=== PATIENT | male | born 1975 | race American Indian/Alaskan Native ===

== ENCOUNTER 2021-03-18 13:23 | Inpatient (IN) | payer BC ==
[2021-03-18] MEDS ORDERED: KETOROLAC 30 MG/1 ML INJ IV ONE (14:06)
[2021-03-18] MEDS ORDERED: SODIUM CHLORIDE 0.9% 1000 ML 1,000 ML IV ONE (14:06)
--- NOTE | 2021-03-18 14:11 | Emergency Department Report ---
<FREYA VELEZ - Last Filed: 03/18/21 20:40> ED Abdominal Pain HPI - General Chief Complaint: Abdominal Pain Stated Complaint: BLOOD IN URINE/HEADACHES Time Seen by Provider: 03/18/21 13:59 - Related Data Home Medications Medication Instructions Recorded Confirmed Last Taken No Known Home Medications [No 03/19/21 03/19/21 Unknown Reported Home Medications] Allergies Allergy/AdvReac Type Severity Reaction Status Date / Time No Known Allergies Allergy Verified 03/18/21 13:47 ED Past Medical Hx - Medications Home Medications: Home Medications Medication Instructions Recorded Confirmed Last Taken Type No Known Home Medications [No 03/19/21 03/19/21 Unknown History Reported Home Medications] ED Course - Reevaluation(s) Reevaluation #1: 03/18/21 17:12 received patient is a signout from the previous ER physician. The patient is a 45-year-old gentleman, who identifies as heterosexual and is only intermittent with female partners, with intermittent barrier protection, who is not vaccinated against COVID-19, who presents to the ER with left-sided flank pain, fever, chills, nausea, vomiting, urinary hesitancy, and hematuria. He is found to have a leukocytosis of 20,000, 2% bandemia, and fever. Urinalysis is suggestive of infection. CT scan abdomen pelvis without contrast suggest pyelonephritis, less likely renal vein thrombosis. Given leukocytosis, fever, bandemia, overall clinical picture, especially as patient endorses shaking, chills, rigors, have recommended admission to the medical service for fluids, pain medication, nausea medication and antibiotics. I discussed this plan of care with the patient. He is agreeable to this plan of care. We will obtain CT scan of the abdomen pelvis with IV contrast to assess for renal vein thrombosis. The patient will be admitted to the medical service under the care of Dr. Abdullahi Wyatt Medical decision makin-year-old gentleman with clinical and radiographic evidence of invasive urinary tract infection, and historical evidence of joshua teremia, requires admission to the medical service for IV antibiotics, fluids, monitoring, supportive care. 03/18/21 20:40 CT scan abdomen pelvis with contrast demonstrates pyelonephritis without renal vein thrombosis. Lactic acid acceptable. ED Medical Decision Making - Lab Data Result diagrams: 03/18/21 15:11 03/18/21 15:11 Vital Signs 03/18/21 03/18/21 03/18/21 13:47 14:29 14:44 Temperature 100.6 F H Pulse Rate 85 Respiratory 16 16 Rate Blood Pressure 165/84 [Left] O2 Sat by Pulse 97 98 Oximetry 03/18/21 16:32 Temperature 98.7 F Pulse Rate 84 Respiratory 18 Rate Blood Pressure 132/87 [Left] O2 Sat by Pulse 98 Oximetry Lab Results 03/18/21 03/18/21 03/18/21 Range/Units 15:11 15:11 15:11 WBC 20.8 H (4.5-11.0) K/mm3 RBC 4.31 (3.65-5.03) M/mm3 Hgb 13.3 (11.8-15.2) gm/dl Hct 39.4 (35.5-45.6) % MCV 91 (84-94) fl MCH 31 (28-32) pg MCHC 34 (32-34) % RDW 13.8 (13.2-15.2) % Plt Count 160 (140-440) K/mm3 Amelia % (Auto) Wheel Alignment Technician Add Manual Diff Complete Total Counted 100 Seg Neuts % (Manual) 78.0 H (40.0-70.0) % Band Neutrophils % 2.0 % Lymphocytes % (Manual) 10.0 L (13.4-35.0) % Monocytes % (Manual) 10.0 H (0.0-7.3) % Nucleated RBC % Not Reportable Seg Neutrophils # Man 16.2 H (1.8-7.7) K/mm3 Band Neutrophils # 0.4 K/mm3 Lymphocytes # (Manual) 2.1 (1.2-5.4) K/mm3 Abs React Lymphs (Man) 0.0 K/mm3 Monocytes # (Manual) 2.1 H (0.0-0.8) K/mm3 Eosinophils # (Manual) 0.0 (0.0-0.4) K/mm3 Basophils # (Manual) 0.0 (0.0-0.1) K/mm3 Metamyelocytes # 0.0 K/mm3 Myelocytes # 0.0 K/mm3 Promyelocytes # 0.0 K/mm3 Blast Cells # 0.0 K/mm3 WBC Morphology Not Reportable TNR Hypersegmented Neuts Not Reportable Hyposegmented Neuts Not Reportable Hypogranular Neuts Not Reportable Smudge Cells Not Reportable Toxic Granulation Not Reportable Toxic Vacuolation Not Reportable Dohle Bodies Not Reportable Pelger-Huet Anomaly Not Reportable Nirali Rods Not Reportable Platelet Estimate Not Reportable Clumped Platelets Not Reportable Plt Clumps, EDTA Not Reportable Large Platelets Not Reportable Giant Platelets Not Reportable Platelet Satelliting Not Reportable Plt Morphology Comment Not Reportable RBC Morphology Normal Dimorphic RBCs Not Reportable Polychromasia Not Reportable Hypochromasia Not Reportable Poikilocytosis Not Reportable Anisocytosis Not Reportable Microcytosis Not Reportable Macrocytosis Not Reportable Spherocytes Not Reportable Pappenheimer Bodies Not Reportable Sickle Cells Not Reportable Target Cells Not Reportable Tear Drop Cells Not Reportable Ovalocytes Not Reportable Helmet Cells Not Reportable Frankel-Rifton Bodies Not Reportable Cecil Rings Not Reportable [place]onsalo Cells Not Reportable Bite Cells Not Reportable Crenated Cell Not Reportable Elliptocytes Not Reportable Acanthocytes (Spur) Not Reportable Rouleaux Not Reportable Hemoglobin C Crystals Not Reportable Schistocytes Not Reportable Malaria parasites Not Reportable Gamaliel Bodies Not Reportable Hem Pathologist Commnt No Sodium 137 (137-145) mmol/L Potassium 3.6 (3.6-5.0) mmol/L Chloride 101.5 (98-107) mmol/L Carbon Dioxide 22 (22-30) mmol/L Anion Gap 17 mmol/L BUN 15 (9-20) mg/dL Creatinine 1.3 (0.8-1.3) mg/dL Estimated GFR > 60 ml/min BUN/Creatinine Ratio 12 % Glucose 100 (75-100) mg/dL Calcium 8.5 (8.4-10.2) mg/dL Total Bilirubin 1.10 (0.1-1.2) mg/dL Direct Bilirubin 0.5 H (0-0.2) mg/dL Indirect Bilirubin 0.6 mg/dL AST 15 (5-40) units/L ALT 16 (7-56) units/L Alkaline Phosphatase 62 (35-129) units/L Total Protein 7.1 (6.3-8.2) g/dL Albumin 3.2 L (3.9-5) g/dL Albumin/Globulin Ratio 0.8 % Urine Color (Yellow) Urine Turbidity (Clear) Urine pH (5.0-7.0) Ur Specific [place] (1.003-1.030) Urine Protein (Negative) mg/dL Urine Glucose (UA) (Negative) mg/dL Urine Ketones (Negative) mg/dL Urine Blood (Negative) Urine Nitrite (Negative) Urine Bilirubin (Negative) Urine Urobilinogen (<2.0) mg/dL Ur Leukocyte Esterase (Negative) Urine WBC (Auto) (0.0-6.0) /HPF Urine RBC (Auto) (0.0-6.0) /HPF U Epithel Cells (Auto) (0-13.0) /HPF Urine Mucus /HPF 03/18/21 Range/Units Unknown WBC (4.5-11.0) K/mm3 RBC (3.65-5.03) M/mm3 Hgb (11.8-15.2) gm/dl Hct (35.5-45.6) % MCV (84-94) fl MCH (28-32) pg MCHC (32-34) % RDW (13.2-15.2) % Plt Count (140-440) K/mm3 Amelia % (Auto) Add Manual Diff Total Counted Seg Neuts % (Manual) (40.0-70.0) % Band Neutrophils % % Lymphocytes % (Manual) (13.4-35.0) % Monocytes % (Manual) (0.0-7.3) % Nucleated RBC % Seg Neutrophils # Man (1.8-7.7) K/mm3 Band Neutrophils # K/mm3 Lymphocytes # (Manual) (1.2-5.4) K/mm3 Abs React Lymphs (Man) K/mm3 Monocytes # (Manual) (0.0-0.8) K/mm3 Eosinophils # (Manual) (0.0-0.4) K/mm3 Basophils # (Manual) (0.0-0.1) K/mm3 Metamyelocytes # K/mm3 Myelocytes # K/mm3 Promyelocytes # K/mm3 Blast Cells # K/mm3 WBC Morphology Hypersegmented Neuts Hyposegmented Neuts Hypogranular Neuts Smudge Cells Toxic Granulation Toxic Vacuolation Dohle Bodies Pelger-Huet Anomaly Nirali Rods Platelet Estimate Clumped Platelets Plt Clumps, EDTA Large Platelets Giant Platelets Platelet Satelliting Plt Morphology Comment RBC Morphology Dimorphic RBCs Polychromasia Hypochromasia Poikilocytosis Anisocytosis Microcytosis Macrocytosis Spherocytes Pappenheimer Bodies Sickle Cells Target Cells Tear Drop Cells Ovalocytes Helmet Cells Frankel-Rifton Bodies Cecil Rings Brohard Cells Bite Cells Crenated Cell Elliptocytes Acanthocytes (Spur) Rouleaux Hemoglobin C Crystals Schistocytes Malaria parasites Gamaliel Bodies Hem Pathologist Commnt Sodium (137-145) mmol/L Potassium (3.6-5.0) mmol/L Chloride (98-107) mmol/L Carbon Dioxide (22-30) mmol/L Anion Gap mmol/L BUN (9-20) mg/dL Creatinine (0.8-1.3) mg/dL Estimated GFR ml/min BUN/Creatinine Ratio % Glucose (75-100) mg/dL Calcium (8.4-10.2) mg/dL Total Bilirubin (0.1-1.2) mg/dL Direct Bilirubin (0-0.2) mg/dL Indirect Bilirubin mg/dL AST (5-40) units/L ALT (7-56) units/L Alkaline Phosphatase (35-129) units/L Total Protein (6.3-8.2) g/dL Albumin (3.9-5) g/dL Albumin/Globulin Ratio % Urine Color Carey (Yellow) Urine Turbidity Cloudy (Clear) Urine pH 6.0 (5.0-7.0) Ur Specific [place] 1.018 (1.003-1.030) Urine Protein 100 mg/dl (Negative) mg/dL Urine Glucose (UA) Neg (Negative) mg/dL Urine Ketones 20 (Negative) mg/dL Urine Blood Lg (Negative) Urine Nitrite Neg (Negative) Urine Bilirubin Neg (Negative) Urine Urobilinogen 4.0 (<2.0) mg/dL Ur Leukocyte Esterase Lg (Negative) Urine WBC (Auto) > 182.0 H (0.0-6.0) /HPF Urine RBC (Auto) 50.0 (0.0-6.0) /HPF U Epithel Cells (Auto) 1.0 (0-13.0) /HPF Urine Mucus Few /HPF - Radiology Data Radiology results: pending, report reviewed, image reviewed CT abdomen pelvis wo con INDICATION / CLINICAL INFORMATION: Bi-Lateral flank pain with vomiting and Hematuria x 4 days.. TECHNIQUE: Axial CT imaging of abdomen and pelvis was obtained without contrast. Coronal and sagittal reformatted imaging obtained and reviewed. All CT scans at this location are performed using CT dose reduction for ALARA by means of automated exposure control. COMPARISON: None available. FINDINGS: CT abdomen without contrast demonstrates grossly normal appearance of the liver, spleen, pancreas, right kidney, and adrenal glands. Calcified gallstone is present within the gallbladder. The gallbladder is not abnormally distended or inflamed in appearance. The left kidney is abnormal. There is prominent inflammatory change in the left perinephric space. The left kidney appears mildly enlarged compared to the right kidney. There is no urinary tract calculus or hydronephrosis identified, however. Findings could be due to extensive pyelonephritis. Without IV contrast, renal vein thrombosis cannot be excluded. CT pelvis without contrast is grossly unremarkable. No pelvic mass, free fluid, or focal inflammatory changes noted. GI tract is unremarkable. A normal appendix is present within the right lower quadrant. Visualized lung bases are clear. No acute osseous abnormality noted. IMPRESSION: 1. Abnormal appearance of the left kidney. The left kidney demonstrates prominent perinephric inflammatory change but without hydronephrosis or visible calculi. The appearance could be secondary to extensive pyelonephritis or other less likely possibilities such as renal vein thrombosis. Please correlate clinically. The right kidney has a normal appear ance. 2. Cholelithiasis without CT evidence for acute cholecystitis. Signer Name: Amanda Lee MD Signed: 03/18/2021 3:16 PM Workstation Name: [id number] CT abdomen pelvis w con INDICATION / CLINICAL INFORMATION: left flank pain, 100ml of omnipaque 300 given. TECHNIQUE: Axial CT imaging of abdomen and pelvis was obtained with IV contrast. Coronal and sagittal reformatted imaging obtained and reviewed. All CT scans at this location are performed using CT dose reduction for ALARA by means of automated exposure control. COMPARISON: CT scan earlier today without contrast. FINDINGS: CT abdomen with IV contrast demonstrates grossly normal appearance of the liver, spleen, pancreas, right kidney, and adrenal glands. Gallbladder contains a calcified gallstone but is otherwise unremarkable. No biliary dilatation. As noted on the prior noncontrasted exam from earlier today, there is moderate inflammatory change involving the left kidney/perinephric space diffusely. No discrete renal mass is noted. I do not see evidence of pyelonephritis. The renal parenchyma is enhancing normally. The left renal vein is well opacified with contrast and there is no suggestion of venous thrombus. The left main renal artery is opacified with contrast is well. No hydronephrosis or urinary tract calculi are noted. CT pelvis with contrast does not demonstrate mass, free fluid, or focal inflammatory change. GI tract is unremarkable. Normal appendix is visualized in the right lower quadrant. Visualized lung bases are clear. No acute osseous abnormality noted. IMPRESSION: 1. Mild to moderate inflammatory change persists in the left perinephric space. The left renal parenchyma is enhancing fairly normally without discrete areas of pyelonephritis. The left renal vein is well opacified with contrast and there is no suggestion of renal vein thrombosis. 2. Cholelithiasis without CT evidence of cholecystitis. Signer Name: Amanda Lee MD Signed: 03/18/2021 5:37 PM Workstation Name: [id number] ED Disposition Clinical Impression: Pyelonephritis Disposition: ADMITTED INPATIENT Is pt being admited?: Yes Does the pt Need Aspirin: No Condition: Good <EMMANUEL RADER. - Last Filed: 03/19/21 15:37> ED Abdominal Pain HPI - General Source: patient Mode of arrival: Ambulatory Limitations: No Limitations - History of Present Illness Initial Comments: 45-year-old male presents to ED with complaint of vomiting and flank pain. Patient states his "kidneys are hurting." He is reporting bilateral flank pain last 4 days. He reports associated hematuria, fever, vomiting. Patient reports passage of a kidney stone over 10 years ago. Patient is also reporting some urinary frequency. Patient denies any abdominal pain. Complaint: flank pain -: days(s) (4) Location: bilateral flank Radiation: none Severity: moderate Quality: aching Consistency: intermittent Improves With: nothing Worsens With: nothing Associated Symptoms: nausea, vomiting, fever, hematuria. denies: diarrhea, dysuria ED Review of Systems ROS: Stated complaint: BLOOD IN URINE/HEADACHES Other details as noted in HPI Comment: All other systems reviewed and negative Constitutional: fever Gastrointestinal: nausea, vomiting. denies: abdominal pain, diarrhea Musculoskeletal: back pain ED Past Medical Hx - Past Medical History Previous Medical History?: No - Surgical History Past Surgical History?: No ED Physical Exam - General Limitations: No Limitations General appearance: alert, in no apparent distress - Head Head exam: Present: atraumatic, normocephalic - Eye Eye exam: Present: normal appearance, EOMI - ENT ENT exam: Present: mucous membranes moist - Neck Neck exam: Present: normal inspection - Respiratory Respiratory exam: Present: normal lung sounds bilaterally. Absent: respiratory distress - Cardiovascular Cardiovascular Exam: Present: regular rate, normal rhythm - GI/Abdominal GI/Abdominal exam: Present: soft. Absent: distended, tenderness - Extremities Exam Extremities exam: Present: normal inspection - Back Exam Back exam: Present: CVA tenderness (R), CVA tenderness (L) - Neurological Exam Neurological exam: Present: alert, oriented X3 - Psychiatric Psychiatric exam: Present: normal affect, normal mood - Skin Skin exam: Present: warm, dry, intact, normal color ED Course Vital Signs 03/18/21 03/18/21 03/18/21 13:47 14:29 14:44 Temperature 100.6 F H Pulse Rate 85 Respiratory 16 16 Rate Blood Pressure Blood Pressure 165/84 [Left] O2 Sat by Pulse 97 98 Oximetry 03/18/21 03/18/21 03/18/21 16:32 18:53 19:00 Temperature 98.7 F Pulse Rate 84 75 Respiratory 18 18 22 Rate Blood Pressure 154/90 Blood Pressure 132/87 [Left] O2 Sat by Pulse 98 96 Oximetry 03/18/21 03/18/21 03/18/21 19:30 20:00 20:30 Temperature Pulse Rate 80 87 80 Respiratory 27 H 18 16 Rate Blood Pressure 140/93 135/90 142/86 Blood Pressure [Left] O2 Sat by Pulse 97 98 96 Oximetry 03/18/21 03/18/21 03/18/21 21:00 22:00 23:00 Temperature Pulse Rate 73 75 62 Respiratory 25 H 15 26 H Rate Blood Pressure 130/83 117/76 107/71 Blood Pressure [Left] O2 Sat by Pulse 98 97 98 Oximetry 03/18/21 03/19/21 03/19/21 23:32 00:00 00:30 Temperature Pulse Rate 67 65 61 Respiratory 20 29 H 22 Rate Blood Pressure 121/75 130/72 130/62 Blood Pressure [Left] O2 Sat by Pulse 97 98 98 Oximetry 03/19/21 03/19/21 03/19/21 00:40 00:50 01:00 Temperature Pulse Rate 73 69 70 Respiratory 22 20 16 Rate Blood Pressure 130/72 139/98 139/98 Blood Pressure [Left] O2 Sat by Pulse 97 97 95 Oximetry 03/19/21 01:10 Temperature Pulse Rate 79 Respiratory 22 Rate Blood Pressure 139/98 Blood Pressure [Left] O2 Sat by Pulse 95 Oximetry ED Medical Decision Making - Lab Data Result diagrams: 03/19/21 05:07 03/19/21 05:07 - Medical Decision Making 45-year-old male presents to ED with complaint of bilateral flank pain. Patient has low-grade fever with evidence of UTI on UA. Remainder of vitals are stable. Patient has mild CVA tenderness bilaterally. UA shows presence of large blood and 50 RBCs in addition to >182 WBCs. Currently waiting on lab res ults and CT abdomen/pelvis to rule out infected renal stone. Patient has been signed out to Dr. Velez to follow-up on labs and CT results. - Differential Diagnosis Pyelonephritis, infected kidney stone Critical care attestation.: If time is entered above; I have spent that time in minutes in the direct care of this critically ill patient, excluding procedure time.
[2021-03-18 14:36] LABS: Bilirubin,Urine NEG (Negative); Blood,Urine LG (Negative); Color,Urine Amber (Yellow); Mucus,Urine FEW /HPF
[2021-03-18 14:44] LABS: WBC,Urine > 182.0 /HPF (0.0-6.0)
[2021-03-18] MEDS ORDERED: ONDANSETRON 4 MG/2 ML INJ IV ONE (15:02)
[2021-03-18 16:04] LABS: Hematocrit 39.4 % (35.5-45.6); Hemoglobin 13.3 gm/dl (11.8-15.2); Mean Corpuscular HGB Conc 34 % (32-34); Mean Corpuscular Volume 91 fl (84-94); Platelet Count 160 K/mm3 (140-440); Red Blood Count 4.31 M/mm3 (3.65-5.03); Red Cell Distribution Width 13.8 % (13.2-15.2)
[2021-03-18 16:05] LABS: Alanine Aminotransferase 16 units/L (7-56); Albumin 3.2 g/dL (3.9-5); BUN/Creatinine Ratio 12; Bilirubin,Direct 0.5 mg/dL (0-0.2); Blood Urea Nitrogen 15 mg/dL (9-20); Calcium 8.5 mg/dL (8.4-10.2); Hemolysis Index 3
--- NOTE | 2021-03-18 16:20 | Cat Scan Report ---
CT abdomen pelvis wo con INDICATION / CLINICAL INFORMATION: Bi-Lateral flank pain with vomiting and Hematuria x 4 days.. TECHNIQUE: Axial CT imaging of abdomen and pelvis was obtained without contrast. Coronal and sagittal reformatte d imaging obtained and reviewed. All CT scans at this location are performed using CT dose reduction for ALARA by means of automated exposure control. COMPARISON: None available. FINDINGS: CT abdomen without contrast demonstrates grossly normal appearance of the liver, spleen, pancreas, ri ght kidney, and adrenal glands. Calcified gallstone is present within the gallbladder. The gallbladde r is not abnormally distended or inflamed in appearance. The left kidney is abnormal. There is prominent inflammatory change in the left perinephric space. Th e left kidney appears mildly enlarged compared to the right kidney. There is no urinary tract calculu s or hydronephrosis identified, however. Findings could be due to extensive pyelonephritis. Without I V contrast, renal vein thrombosis cannot be excluded. CT pelvis without contrast is grossly unremarkable. No pelvic mass, free fluid, or focal inflammatory changes noted. GI tract is unremarkable. A normal appendix is present within the right lower quadrant. Visualized lung bases are clear. No acute osseous abnormality noted. IMPRESSION: 1. Abnormal appearance of the left kidney. The left kidney demonstrates prominent perinephric inflamm atory change but without hydronephrosis or visible calculi. The appearance could be secondary to exte nsive pyelonephritis or other less likely possibilities such as renal vein thrombosis. Please correla te clinically. The right kidney has a normal appearance. 2. Cholelithiasis without CT evidence for acute cholecystitis. Signer Name: Amanda Lee MD Signed: 03/18/2021 4:16 PM Workstation Name: [id number]
[2021-03-18 16:42] LABS: Band Neutrophils # (Manual) 0.4 K/mm3; Total Cells Counted 100
[2021-03-18 16:43] LABS: RBC Morphology Normal
[2021-03-18] MEDS ORDERED: cefTRIAXone/NS 1 GM/50 ML 1 GM/50 ML BAG IV ONE (17:09)
[2021-03-18] MEDS ORDERED: HYDROmorphone 1 MG/1 ML INJ IV ONE (17:09)
[2021-03-18] MEDS ORDERED: SODIUM CHLORIDE 0.9% 1000 ML 2,000 ML IV ONE (17:10)
[2021-03-18] MEDS ORDERED: ACETAMINOPHEN 500 MG TAB PO ONE (17:11)
--- NOTE | 2021-03-18 18:41 | Cat Scan Report ---
CT abdomen pelvis w con INDICATION / CLINICAL INFORMATION: left flank pain, 100ml of omnipaque 300 given. TECHNIQUE: Axial CT imaging of abdomen and pelvis was obtained with IV contrast. Coronal and sagittal reformatte d imaging obtained and reviewed. All CT scans at this location are performed using CT dose reduction for ALARA by means of automated exposure control. COMPARISON: CT scan earlier today without contrast. FINDINGS: CT abdomen with IV contrast demonstrates grossly normal appearance of the liver, spleen, pancreas, ri ght kidney, and adrenal glands. Gallbladder contains a calcified gallstone but is otherwise unremarka ble. No biliary dilatation. As noted on the prior noncontrasted exam from earlier today, there is moderate inflammatory change in volving the left kidney/perinephric space diffusely. No discrete renal mass is noted. I do not see ev idence of pyelonephritis. The renal parenchyma is enhancing normally. The left renal vein is well opa cified with contrast and there is no suggestion of venous thrombus. The left main renal artery is opa cified with contrast is well. No hydronephrosis or urinary tract calculi are noted. CT pelvis with contrast does not demonstrate mass, free fluid, or focal inflammatory change. GI tract is unremarkable. Normal appendix is visualized in the right lower quadrant. Visualized lung bases are clear. No acute osseous abnormality noted. IMPRESSION: 1. Mild to moderate inflammatory change persists in the left perinephric space. The left renal parenc hyma is enhancing fairly normally without discrete areas of pyelonephritis. The left renal vein is we ll opacified with contrast and there is no suggestion of renal vein thrombosis. 2. Cholelithiasis without CT evidence of cholecystitis. Signer Name: Amanda Lee MD Signed: 03/18/2021 6:37 PM Workstation Name: [id number]
[2021-03-18] MEDS ORDERED: ONDANSETRON 4 MG/2 ML INJ IV PRN (22:45)
[2021-03-18] MEDS ORDERED: HYDROmorphone 1 MG/1 ML INJ IV PRN (22:45)
[2021-03-18] MEDS ORDERED: METOCLOPRAMIDE 10 MG/2 ML INJ IV PRN (22:45)
[2021-03-18] MEDS: HEPARIN 5,000 UNIT/1 ML VIAL SUB-Q SCH (23:23)
[2021-03-19] MEDS: D5W/0.9% NACL 1,000 ML IV SCH ×3 (00:30→18:37)
[2021-03-19] MEDS: ACETAMINOPHEN 325 MG TAB PO PRN ×2 (05:00→18:40)
[2021-03-19 06:02] LABS: Basophils # (Auto) 0.1 K/mm3 (0.0-0.1); Basophils % (Auto) 0.4 % (0.0-1.8); Eosinophils % (Auto) 0.1 % (0.0-4.3); Hematocrit 42.2 % (35.5-45.6); Hemoglobin 14.1 gm/dl (11.8-15.2); Lymphocytes % (Auto) 14.3 % (13.4-35.0); Mean Corpuscular HGB Conc 34 % (32-34); Mean Corpuscular Volume 91 fl (84-94); Monocytes # (Auto) 1.9 K/mm3 (0.0-0.8); Monocytes % (Auto) 13.4 % (0.0-7.3); Platelet Count 188 K/mm3 (140-440); Red Blood Count 4.61 M/mm3 (3.65-5.03); Red Cell Distribution Width 14.3 % (13.2-15.2)
[2021-03-19 06:24] LABS: Alanine Aminotransferase 24 units/L (7-56); Albumin 3.4 g/dL (3.9-5); BUN/Creatinine Ratio 9; Blood Urea Nitrogen 12 mg/dL (9-20); Calcium 8.6 mg/dL (8.4-10.2); Hemolysis Index 9
--- NOTE | 2021-03-19 07:55 | History and Physical Report ---
History of Present Illness Date of examination: 03/18/21 Date of admission: 03/18/21 17:14 Chief complaint: Left flank pain for 2 days. History of present illness: 45-year-old male with no significant past medical history comes in for left flank pain and dysuria. Hurting severely. Pain is about 8 on a scale of 1-10. Patient has a history of kidney stones 10 years ago. Also fever off-and-on. No exposure to Covid Patient is Covid vaccinated. - Past Medical History Previous Medical History?: No - Surgical History Past Surgical History?: No social history smokes over 1 pack a day-alcohol occasionally Marijuana on a regular basis family history Htn -Review of Systems Comment: All other systems reviewed and negative Constitutional: fever Gastrointestinal: nausea, vomiting. denies: abdominal pain, diarrhea Musculoskeletal: back pain Medications and Allergies Allergies Allergy/AdvReac Type Severity Reaction Status Date / Time No Known Allergies Allergy Verified 03/18/21 13:47 Active Meds: Active Medications Acetaminophen (Acetaminophen 325 Mg Tab) 650 mg PO Q4H PRN PRN Reason: Pain MILD(1-3)/Fever >100.5/MARIE Last Admin: 03/19/21 05:00 Dose: 650 mg Documented by: Famotidine (Famotidine 20 Mg/2 Ml Inj) 20 mg IV BID JOHNNA Heparin Sodium (Porcine) (Heparin 5,000 Unit/1 Ml Vial) 5,000 unit SUB-Q Q12HR JOHNNA Last Admin: 03/18/21 23:23 Dose: 5,000 unit Documented by: Hydromorphone HCl (Hydromorphone 1 Mg/1 Ml Inj) 0.5 mg IV Q3H PRN PRN Reason: Pain , Severe (7-10) Last Admin: 03/19/21 02:18 Dose: 0.5 mg Documented by: Dextrose/Sodium Chloride (D5ns) 1,000 mls @ 100 mls/hr IV DIRECT JOHNNA Last Admin: 03/19/21 00:30 Dose: 100 mls/hr Documented by: Ceftriaxone Sodium (Rocephin/Ns 2 Gm/100 Ml) 2 gm in 100 mls @ 200 mls/hr IV Q24HR JOHNNA; Protocol Metoclopramide HCl (Metoclopramide 10 Mg/2 Ml Inj) 10 mg IV Q6H PRN PRN Reason: Nausea And Vomiting Nicotine (Nicotine 14 Mg/24 Hr Patch) 14 mg TD QDAY JOHNNA Ondansetron HCl (Ondansetron 4 Mg/2 Ml Inj) 4 mg IV Q8H PRN PRN Reason: Nausea And Vomiting Oxycodone/Acetaminophen (Oxycodone /Acetaminophen 5-325mg Tab) 1 tab PO Q6H PRN PRN Reason: Pain, Moderate (4-6) Sodium Chloride (Sodium Chloride 0.9% 10 Ml Flush Syringe) 10 ml IV BID JOHNNA Sodium Chloride (Sodium Chloride 0.9% 10 Ml Flush Syringe) 10 ml IV PRN PRN PRN Reason: LINE FLUSH Exam - Constitutional Vitals: Temp Pulse Resp BP Pulse Ox 99.0 F 83 16 119/71 96 03/19/21 07:26 03/19/21 04:30 03/19/21 04:30 03/19/21 04:30 03/19/21 04:30 General appearance: Present: no acute distress, well-nourished - EENT Eyes: Present: PERRL ENT: hearing intact, clear oral mucosa - Neck Neck: Present: supple, normal ROM - Respiratory Respiratory effort: normal Respiratory: bilateral: CTA - Cardiovascular Heart rate: 78 Rhythm: regular Heart Sounds: Present: S1 & S2. Absent: rub, click - Extremities Extremities: no ischemia, pulses intact, pulses symmetrical, No edema Extremity abnormal: edema Peripheral Pulses: within normal limits - Abdominal General gastrointestinal: Present: soft, non-tender, non-distended, normal bowel sounds Localized gastrointestinal: tender: LUQ (Left flank pain and tenderness present.) Male genitourinary: Present: normal - Rectal Rectal Exam: deferred - Integumentary Integumentary: Present: clear, warm, dry - Musculoskeletal Musculoskeletal: gait normal, strength equal bilaterally - Psychiatric Psychiatric: appropriate mood/affect, intact judgment & insight - Neurologic Neurologic: CNII-XII intact, moves all extremities - Allied Health Allied health notes reviewed: nursing, case management Results - Labs CBC & Chem 7: 03/19/21 05:07 03/19/21 05:07 Labs: Laboratory Last Values WBC 14.0 K/mm3 (4.5-11.0) H 03/19/21 05:07 RBC 4.61 M/mm3 (3.65-5.03) 03/19/21 05:07 Hgb 14.1 gm/dl (11.8-15.2) 03/19/21 05:07 Hct 42.2 % (35.5-45.6) 03/19/21 05:07 MCV 91 fl (84-94) 03/19/21 05:07 MCH 31 pg (28-32) 03/19/21 05:07 MCHC 34 % (32-34) 03/19/21 05:07 RDW 14.3 % (13.2-15.2) 03/19/21 05:07 Plt Count 188 K/mm3 (140-440) 03/19/21 05:07 Lymph % (Auto) 14.3 % (13.4-35.0) 03/19/21 05:07 [place] % (Auto) 13.4 % (0.0-7.3) H 03/19/21 05:07 Eos % (Auto) 0.1 % (0.0-4.3) 03/19/21 05:07 Baso % (Auto) 0.4 % (0.0-1.8) 03/19/21 05:07 Lymph # (Auto) 2.0 K/mm3 (1.2-5.4) 03/19/21 05:07 [place] # (Auto) 1.9 K/mm3 (0.0-0.8) H 03/19/21 05:07 Eos # (Auto) 0.0 K/mm3 (0.0-0.4) 03/19/21 05:07 Baso # (Auto) 0.1 K/mm3 (0.0-0.1) 03/19/21 05:07 Add Manual Diff Complete 03/18/21 15:11 Total Counted 100 03/18/21 15:11 Seg Neutrophils % 71.8 % (40.0-70.0) H 03/19/21 05:07 Seg Neuts % (Manual) 78.0 % (40.0-70.0) H 03/18/21 15:11 Band Neutrophils % 2.0 % 03/18/21 15:11 Lymphocytes % (Manual) 10.0 % (13.4-35.0) L 03/18/21 15:11 Monocytes % (Manual) 10.0 % (0.0-7.3) H 03/18/21 15:11 Nucleated RBC % Not Reportable 03/18/21 15:11 Seg Neutrophils # 10.1 K/mm3 (1.8-7.7) H 03/19/21 05:07 Seg Neutrophils # Man 16.2 K/mm3 (1.8-7.7) H 03/18/21 15:11 Band Neutrophils # 0.4 K/mm3 03/18/21 15:11 Lymphocytes # (Manual) 2.1 K/mm3 (1.2-5.4) 03/18/21 15:11 Abs React Lymphs (Man) 0.0 K/mm3 03/18/21 15:11 Monocytes # (Manual) 2.1 K/mm3 (0.0-0.8) H 03/18/21 15:11 Eosinophils # (Manual) 0.0 K/mm3 (0.0-0.4) 03/18/21 15:11 Basophils # (Manual) 0.0 K/mm3 (0.0-0.1) 03/18/21 15:11 Metamyelocytes # 0.0 K/mm3 03/18/21 15:11 Myelocytes # 0.0 K/mm3 03/18/21 15:11 Promyelocytes # 0.0 K/mm3 03/18/21 15:11 Blast Cells # 0.0 K/mm3 03/18/21 15:11 WBC Morphology Not Reportable 03/18/21 15:11 WBC Morphology TNR 03/18/21 15:11 Hypersegmented Neuts Not Reportable 03/18/21 15:11 Hyposegmented Neuts Not Reportable 03/18/21 15:11 Hypogranular Neuts Not Reportable 03/18/21 15:11 Smudge Cells Not Reportable 03/18/21 15:11 Toxic Granulation Not Reportable 03/18/21 15:11 Toxic Vacuolation Not Reportable 03/18/21 15:11 Dohle Bodies Not Reportable 03/18/21 15:11 Pelger-Huet Anomaly Not Reportable 03/18/21 15:11 Nirali Rods Not Reportable 03/18/21 15:11 Platelet Estimate Not Reportable 03/18/21 15:11 Clumped Platelets Not Reportable 03/18/21 15:11 Plt Clumps, EDTA Not Reportable 03/18/21 15:11 Large Platelets Not Reportable 03/18/21 15:11 Giant Platelets Not Reportable 03/18/21 15:11 Platelet Satelliting Not Reportable 03/18/21 15:11 Plt Morphology Comment Not Reportable 03/18/21 15:11 RBC Morphology Normal 03/18/21 15:11 Dimorphic RBCs Not Reportable 03/18/21 15:11 Polychromasia Not Reportable 03/18/21 15:11 Hypochromasia Not Reportable 03/18/21 15:11 Poikilocytosis Not Reportable 03/18/21 15:11 Anisocytosis Not Reportable 03/18/21 15:11 Microcytosis Not Reportable 03/18/21 15:11 Macrocytosis Not Reportable 03/18/21 15:11 Spherocytes Not Reportable 03/18/21 15:11 Pappenheimer Bodies Not Reportable 03/18/21 15:11 Sickle Cells Not Reportable 03/18/21 15:11 Target Cells Not Reportable 03/18/21 15:11 Tear Drop Cells Not Reportable 03/18/21 15:11 Ovalocytes Not Reportable 03/18/21 15:11 Helmet Cells Not Reportable 03/18/21 15:11 Frankel-[place]orn[place] Bodies Not Reportable 03/18/21 15:11 [place] Rings Not Reportable 03/18/21 15:11 [place] Cells Not Reportable 03/18/21 15:11 Bite Cells Not Reportable 03/18/21 15:11 Crenated Cell Not Reportable 03/18/21 15:11 Elliptocytes Not Reportable 03/18/21 15:11 Acanthocytes (Spur) Not Reportable 03/18/21 15:11 Rouleaux Not Reportable 03/18/21 15:11 Hemoglobin C Crystals Not Reportable 03/18/21 15:11 Schistocytes Not Reportable 03/18/21 15:11 Malaria parasites Not Reportable 03/18/21 15:11 Gamaliel Bodies Not Reportable 03/18/21 15:11 Hem Pathologist Commnt No 03/18/21 15:11 Sodium 140 mmol/L (137-145) 03/19/21 05:07 Potassium 3.8 mmol/L (3.6-5.0) 03/19/21 05:07 Chloride 104.7 mmol/L (98-107) 03/19/21 05:07 Carbon Dioxide 24 mmol/L (22-30) 03/19/21 05:07 Anion Gap 15 mmol/L 03/19/21 05:07 BUN 12 mg/dL (9-20) 03/19/21 05:07 Creatinine 1.3 mg/dL (0.8-1.3) 03/19/21 05:07 Estimated GFR > 60 ml/min 03/19/21 05:07 BUN/Creatinine Ratio 9 % 03/19/21 05:07 Glucose 107 mg/dL (75-100) H 03/19/21 05:07 Lactic Acid 0.90 mmol/L (0.7-2.0) 03/18/21 17:12 Calcium 8.6 mg/dL (8.4-10.2) 03/19/21 05:07 Total Bilirubin 0.80 mg/dL (0.1-1.2) 03/19/21 05:07 Direct Bilirubin 0.5 mg/dL (0-0.2) H 03/18/21 15:11 Indirect Bilirubin 0.6 mg/dL 03/18/21 15:11 AST 22 units/L (5-40) 03/19/21 05:07 ALT 24 units/L (7-56) 03/19/21 05:07 Alkaline Phosphatase 70 units/L (35-129) 03/19/21 05:07 Total Protein 7.2 g/dL (6.3-8.2) 03/19/21 05:07 Albumin 3.4 g/dL (3.9-5) L 03/19/21 05:07 Albumin/Globulin Ratio 0.9 % 03/19/21 05:07 Urine Color Carey (Yellow) 03/18/21 Unknown Urine Turbidity Cloudy (Clear) 03/18/21 Unknown Urine pH 6.0 (5.0-7.0) 03/18/21 Unknown Ur Specific [place] 1.018 (1.003-1.030) 03/18/21 Unknown Urine Protein 100 mg/dl mg/dL (Negative) 03/18/21 Unknown Urine Glucose (UA) Neg mg/dL (Negative) 03/18/21 Unknown Urine Ketones 20 mg/dL (Negative) 03/18/21 Unknown Urine Blood Lg (Negative) 03/18/21 Unknown Urine Nitrite Neg (Negative) 03/18/21 Unknown Urine Bilirubin Neg (Negative) 03/18/21 Unknown Urine Urobilinogen 4.0 mg/dL (<2.0) 03/18/21 Unknown Ur Leukocyte Esterase Lg (Negative) 03/18/21 Unknown Urine WBC (Auto) > 182.0 /HPF (0.0-6.0) H 03/18/21 Unknown Urine RBC (Auto) 50.0 /HPF (0.0-6.0) 03/18/21 Unknown U Epithel Cells (Auto) 1.0 /HPF (0-13.0) 03/18/21 Unknown Urine Mucus Few /HPF 03/18/21 Unknown Microbiology: Microbiology 03/18/21 17:12 Peripheral/Venous Blood Culture - Preliminary Culture in Progress 03/18/21 17:12 Peripheral/Venous Blood Culture - Preliminary Culture in Progress - Imaging and Cardiology CT scan - abdomen: report reviewed Imaging and Cardiology: Patient is Covid vaccinated. Abdomen/pelvis CT scan abnormal lab appearance of the left kidney. The left kidney demonstrates prominent perinephric inflammatory change but without hydronephrosis or visual ataxia. The appearance could be secondary to extensive pyelonephritis or other left leg pain possible due to renal vein thrombosis please correlate clinically Kidney has a normal appearance. Cholelithiasis without CT evidence of acute cholecystitis. No renal vein thrombosis. Roe/IV: Voiding Method Toilet Assessment and Plan Advance Directives: Yes (Full code) VTE prophylaxis?: Chemical Plan of care discussed with patient/family: Yes - Patient Problems (1) Sepsis Current Visit: Yes Status: Acute Qualifiers: Sepsis type: sepsis due to unspecified organism Plan to address problem: Patient with high white count of over 20,000 Secondary to pyelonephritis patient started on IV Rocephin pending urine cultures (2) Pyelonephritis Current Visit: Yes Status: Acute Plan to address problem: Patient initiated on IV Rocephin 2 g IV piggyback every 24 hours cultures p ending. (3) Nicotine dependence Current Visit: Yes Status: Chronic Qualifiers: Nicotine product type: cigarettes Plan to address problem: Patient smokes about a pack a day on a regular basis. Next Patient counseled about nicotine and its deleterious effects on blood vessels 3 to 4 minutes. (4) DVT prophylaxis Current Visit: Yes Status: Acute
[2021-03-19] MEDS: NICOTINE 14 MG/24 HR PATCH TD SCH (09:05)
[2021-03-19] MEDS: cefTRIAXone/NS 2 GM/100 ML 2 GM/100 ML BAG IV SCH (09:06)
[2021-03-19] MEDS: FAMOTIDINE 20 MG/2 ML INJ IV SCH ×2 (09:06→23:37)
[2021-03-19] MEDS: HEPARIN 5,000 UNIT/1 ML VIAL SUB-Q SCH ×2 (09:06→23:38)
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
[2021-03-19] MEDS: oxyCODONE /ACETAMINOPHEN 5-325MG TAB PO PRN (11:38)
[2021-03-20] MEDS: oxyCODONE /ACETAMINOPHEN 5-325MG TAB PO PRN (05:04)
[2021-03-20] MEDS: D5W/0.9% NACL 1,000 ML IV SCH ×2 (05:04→18:08)
[2021-03-20 06:38] LABS: Hemoglobin 12.3 gm/dl (11.8-15.2); Mean Corpuscular HGB Conc 34 % (32-34); Mean Corpuscular Volume 92 fl (84-94); Platelet Count 204 K/mm3 (140-440); Red Blood Count 3.91 M/mm3 (3.65-5.03)
[2021-03-20] MEDS: HEPARIN 5,000 UNIT/1 ML VIAL SUB-Q SCH ×2 (09:44→21:18)
[2021-03-20] MEDS: cefTRIAXone/NS 2 GM/100 ML 2 GM/100 ML BAG IV SCH (09:44)
[2021-03-20] MEDS: NICOTINE 14 MG/24 HR PATCH TD SCH ×2 (09:44→10:18)
[2021-03-20] MEDS: FAMOTIDINE 20 MG TAB PO SCH ×2 (09:45→21:18)
[2021-03-20 14:42] LABS: Band Neutrophils # (Manual) 0.6 K/mm3; Myelocytes # (Manual) 0.2 K/mm3; Total Cells Counted 100
[2021-03-20 14:43] LABS: RBC Morphology Normal
--- NOTE | 2021-03-20 19:12 | Progress Note ---
Assessment and Plan Assessment and plan: Assessment and Plan - Patient Problems (1) Sepsis Current Visit: Yes Status: Acute Qualifiers: Sepsis type: sepsis due to unspecified organism Plan to address problem: Sepsis protocol: IV antibiotic therapy, IV fluid resuscitation therapy, monitor urine output every shift, maintain mean arterial pressure greater than or equal to 65, monitor fluid balance, (2) acute left pyelonephritis with fever 102.4. History of kidney stones and gout Current Visit: Yes Status: Acute Plan to address problem: Fever and leukocytosis resolving. Blood cultures negative but urine cultures were ordered but not sent to lab. Patient does have left upper quadrant mild to moderate tenderness better clinically improving overall. No hydronephrosis on CT. Patient admits to improving her dysuria and hematuria with a good urine stream. Renal function remains normal. No history of kidney stones for the last normal attack was about 20 years ago. He might have an obstructed ureter stone which passed causing hematuria and UTI. Patient denies STD. Plan is to continue IV antibiotic therapy until fever and left upper quadrant abdominal pain resolves. (3) extreme obesity (BMI 30.0-34.9) Current Visit: Yes Status: Acute Plan to address problem: Balanced diet, increase physical activity discharge (4) Nicotine dependence Current Visit: Yes Status: Chronic Qualifiers: Nicotine product type: cigarettes Plan to address problem: Smoking cessation counseling, supportive care, behavior change counseling, +15 minutes. (5) DVT prophylaxis Current Visit: Yes Status: Acute Plan to address problem: SCD to bilateral lower extremities while in bed, patient is ambulatory History Interval history: Patient reports improvement dysuria and hematuria. states that his urine stream is good. He also reports some pain in left lower quadrant. He has history of kidney stones but the last attack was about 20 years ago. He reports history of gout in left ankle. Is afebrile with stable vital signs. Hospitalist Physical - Constitutional Vitals: Temp Pulse Resp BP Pulse Ox 99 F 78 16 139/87 98 03/20/21 12:20 03/20/21 12:20 03/20/21 12:20 03/20/21 12:20 03/20/21 12:20 General appearance: Present: no acute distress, well-nourished, other (Extremely obese) - EENT Eyes: Present: PERRL ENT: hearing intact - Neck Neck: Present: supple - Respiratory Respiratory effort: normal - Cardiovascular Rhythm: regular - Extremities Extremities: No edema - Abdominal General gastrointestinal: soft, normal bowel sounds, other (Mild to moderate tenderness in left upper quadrant.) - Integumentary Integumentary: Absent: rash - Psychiatric Psychiatric: appropriate mood/affect - Neurologic Neurologic: no focal deficits Results - Labs CBC & Chem 7: 03/20/21 05:20 03/19/21 05:07 Labs: Laboratory Last Values WBC 11.0 K/mm3 (4.5-11.0) 03/20/21 05:20 RBC 3.91 M/mm3 (3.65-5.03) 03/20/21 05:20 Hgb 12.3 gm/dl (11.8-15.2) 03/20/21 05:20 Hct 36.0 % (35.5-45.6) D 03/20/21 05:20 MCV 92 fl (84-94) 03/20/21 05:20 MCH 32 pg (28-32) 03/20/21 05:20 MCHC 34 % (32-34) 03/20/21 05:20 RDW 14.0 % (13.2-15.2) 03/20/21 05:20 Plt Count 204 K/mm3 (140-440) 03/20/21 05:20 Lymph % (Auto) 14.3 % (13.4-35.0) 03/19/21 05:07 [place] % (Auto) Import Export Agent 03/20/21 05:20 Eos % (Auto) 0.1 % (0.0-4.3) 03/19/21 05:07 Baso % (Auto) 0.4 % (0.0-1.8) 03/19/21 05:07 Lymph # (Auto) 2.0 K/mm3 (1.2-5.4) 03/19/21 05:07 [place] # (Auto) 1.9 K/mm3 (0.0-0.8) H 03/19/21 05:07 Eos # (Auto) 0.0 K/mm3 (0.0-0.4) 03/19/21 05:07 Baso # (Auto) 0.1 K/mm3 (0.0-0.1) 03/19/21 05:07 Add Manual Diff Complete 03/20/21 05:20 Total Counted 100 03/20/21 05:20 Seg Neutrophils % 71.8 % (40.0-70.0) H 03/19/21 05:07 Seg Neuts % (Manual) 39.0 % (40.0-70.0) L 03/20/21 05:20 Band Neutrophils % 5.0 % 03/20/21 05:20 Lymphocytes % (Manual) 49.0 % (13.4-35.0) H 03/20/21 05:20 Monocytes % (Manual) 5.0 % (0.0-7.3) 03/20/21 05:20 Myelocytes % 2.0 % 03/20/21 05:20 Nucleated RBC % Not Reportable 03/20/21 05:20 Seg Neutrophils # 10.1 K/mm3 (1.8-7.7) H 03/19/21 05:07 Seg Neutrophils # Man 4.3 K/mm3 (1.8-7.7) 03/20/21 05:20 Band Neutrophils # 0.6 K/mm3 03/20/21 05:20 Lymphocytes # (Manual) 5.4 K/mm3 (1.2-5.4) 03/20/21 05:20 Abs React Lymphs (Man) 0.0 K/mm3 03/20/21 05:20 Monocytes # (Manual) 0.6 K/mm3 (0.0-0.8) 03/20/21 05:20 Eosinophils # (Manual) 0.0 K/mm3 (0.0-0.4) 03/20/21 05:20 Basophils # (Manual) 0.0 K/mm3 (0.0-0.1) 03/20/21 05:20 Metamyelocytes # 0.0 K/mm3 03/20/21 05:20 Myelocytes # 0.2 K/mm3 03/20/21 05:20 Promyelocytes # 0.0 K/mm3 03/20/21 05:20 Blast Cells # 0.0 K/mm3 03/20/21 05:20 WBC Morphology Not Reportable 03/20/21 05:20 Hypersegmented Neuts Not Reportable 03/20/21 05:20 Hyposegmented Neuts Not Reportable 03/20/21 05:20 Hypogranular Neuts Not Reportable 03/20/21 05:20 Smudge Cells Not Reportable 03/20/21 05:20 Toxic Granulation Not Reportable 03/20/21 05:20 Toxic Vacuolation Not Reportable 03/20/21 05:20 Dohle Bodies Not Reportable 03/20/21 05:20 Pelger-Huet Anomaly Not Reportable 03/20/21 05:20 Nirali Rods Not Reportable 03/20/21 05:20 Platelet Estimate Not Reportable 03/20/21 05:20 Clumped Platelets Not Reportable 03/20/21 05:20 Plt Clumps, EDTA Not Reportable 03/20/21 05:20 Large Platelets Not Reportable 03/20/21 05:20 Giant Platelets Not Reportable 03/20/21 05:20 Platelet Satelliting Not Reportable 03/20/21 05:20 Plt Morphology Comment Not Reportable 03/20/21 05:20 RBC Morphology Normal 03/20/21 05:20 Dimorphic RBCs Not Reportable 03/20/21 05:20 Polychromasia Not Reportable 03/20/21 05:20 Hypochromasia Not Reportable 03/20/21 05:20 Poikilocytosis Not Reportable 03/20/21 05:20 Anisocytosis Not Reportable 03/20/21 05:20 Microcytosis Not Reportable 03/20/21 05:20 Macrocytosis Not Reportable 03/20/21 05:20 Spherocytes Not Reportable 03/20/21 05:20 Pappenheimer Bodies Not Reportable 03/20/21 05:20 Sickle Cells Not Reportable 03/20/21 05:20 Target Cells Not Reportable 03/20/21 05:20 Tear Drop Cells Not Reportable 03/20/21 05:20 Ovalocytes Not Reportable 03/20/21 05:20 Helmet Cells Not Reportable 03/20/21 05:20 [place] Bodies Not Reportable 03/20/21 05:20 [place] Rings Not Reportable 03/20/21 05:20 [place] Cells Not Reportable 03/20/21 05:20 Bite Cells Not Reportable 03/20/21 05:20 Crenated Cell Not Reportable 03/20/21 05:20 Elliptocytes Not Reportable 03/20/21 05:20 Acanthocytes (Spur) Not Reportable 03/20/21 05:20 Rouleaux Not Reportable 03/20/21 05:20 Hemoglobin C Crystals Not Reportable 03/20/21 05:20 Schistocytes Not Reportable 03/20/21 05:20 Malaria parasites Not Reportable 03/20/21 05:20 Gamaliel Bodies Not Reportable 03/20/21 05:20 Hem Pathologist Commnt No 03/20/21 05:20 Sodium 140 mmol/L (137-145) 03/19/21 05:07 Potassium 3.8 mmol/L (3.6-5.0) 03/19/21 05:07 Chloride 104.7 mmol/L (98-107) 03/19/21 05:07 Carbon Dioxide 24 mmol/L (22-30) 03/19/21 05:07 Anion Gap 15 mmol/L 03/19/21 05:07 BUN 12 mg/dL (9-20) 03/19/21 05:07 Creatinine 1.3 mg/dL (0.8-1.3) 03/19/21 05:07 Estimated GFR > 60 ml/min 03/19/21 05:07 BUN/Creatinine Ratio 9 % 03/19/21 05:07 Glucose 107 mg/dL (75-100) H 03/19/21 05:07 Lactic Acid 0.90 mmol/L (0.7-2.0) 03/18/21 17:12 Calcium 8.6 mg/dL (8.4-10.2) 03/19/21 05:07 Total Bilirubin 0.80 mg/dL (0.1-1.2) 03/19/21 05:07 Direct Bilirubin 0.5 mg/dL (0-0.2) H 03/18/21 15:11 Indirect Bilirubin 0.6 mg/dL 03/18/21 15:11 AST 22 units/L (5-40) 03/19/21 05:07 ALT 24 units/L (7-56) 03/19/21 05:07 Alkaline Phosphatase 70 units/L (35-129) 03/19/21 05:07 Total Protein 7.2 g/dL (6.3-8.2) 03/19/21 05:07 Albumin 3.4 g/dL (3.9-5) L 03/19/21 05:07 Albumin/Globulin Ratio 0.9 % 03/19/21 05:07 Urine Color Carey (Yellow) 03/18/21 Unknown Urine Turbidity Cloudy (Clear) 03/18/21 Unknown Urine pH 6.0 (5.0-7.0) 03/18/21 Unknown Ur Specific [place] 1.018 (1.003-1.030) 03/18/21 Unknown Urine Protein 100 mg/dl mg/dL (Negative) 03/18/21 Unknown Urine Glucose (UA) Neg mg/dL (Negative) 03/18/21 Unknown Urine Ketones 20 mg/dL (Negative) 03/18/21 Unknown Urine Blood Lg (Negative) 03/18/21 Unknown Urine Nitrite Neg (Negative) 03/18/21 Unknown Urine Bilirubin Neg (Negative) 03/18/21 Unknown Urine Urobilinogen 4.0 mg/dL (<2.0) 03/18/21 Unknown Ur Leukocyte Esterase Lg (Negative) 03/18/21 Unknown Urine WBC (Auto) > 182.0 /HPF (0.0-6.0) H 03/18/21 Unknown Urine RBC (Auto) 50.0 /HPF (0.0-6.0) 03/18/21 Unknown U Epithel Cells (Auto) 1.0 /HPF (0-13.0) 03/18/21 Unknown Urine Mucus Few /HPF 03/18/21 Unknown Microbiology: Microbiology 03/18/21 17:12 Peripheral/Venous Blood Culture - Preliminary NO GROWTH AFTER 48 HOURS 03/18/21 17:12 Peripheral/Venous Blood Culture - Preliminary NO GROWTH AFTER 48 HOURS Roe/IV: Voiding Method Toilet Active Medications - Current Medications Current Medications: Generic Name Dose Route Start Last Admin Trade Name Freq PRN Reason Stop Dose Admin Acetaminophen 650 mg 03/18/21 22:45 03/19/21 18:40 Acetaminophen 325 Mg Tab PO 650 mg Q4H PRN Administration Pain MILD(1-3)/Fever >100.5/MARIE Famotidine 20 mg 03/20/21 10:00 03/20/21 09:45 Famotidine 20 Mg Tab PO 20 mg BID JOHNNA Administration Heparin Sodium (Porcine) 5,000 unit 03/18/21 23:00 03/20/21 09:44 Heparin 5,000 Unit/1 Ml Vial SUB-Q 5,000 unit Q12HR JOHNNA Administration Hydromorphone HCl 0.5 mg 03/18/21 22:45 03/19/21 02:18 Hydromorphone 1 Mg/1 Ml Inj IV 0.5 mg Q3H PRN Administration Pain , Severe (7-10) Dextrose/Sodium Chloride 1,000 mls @ 100 mls/hr 03/18/21 23:00 03/20/21 18:08 D5ns IV 100 mls/hr DIRECT JOHNNA Administration Ceftriaxone Sodium 2 gm in 100 mls @ 200 mls/hr 03/19/21 10:00 03/20/21 09:44 Rocephin/Ns 2 Gm/100 Ml IV 03/28/21 10:59 200 mls/hr Q24HR JOHNNA Administration Protocol Metoclopramide HCl 10 mg 03/18/21 22:45 Metoclopramide 10 Mg/2 Ml Inj IV Q6H PRN Nausea And Vomiting Nicotine 14 mg 03/19/21 10:00 03/20/21 10:18 Nicotine 14 Mg/24 Hr Patch TD Not Given QDAY JOHNNA Ondansetron HCl 4 mg 03/18/21 22:45 03/19/21 18:40 Ondansetron 4 Mg/2 Ml Inj IV 4 mg Q8H PRN Administration Nausea And Vomiting Oxycodone/Acetaminophen 1 tab 03/18/21 22:45 03/20/21 05:04 Oxycodone /Acetaminophen 5-325mg Tab PO 1 tab Q6H PRN Administration Pain, Moderate (4-6) Sodium Chloride 10 ml 03/19/21 10:00 03/20/21 09:45 Sodium Chloride 0.9% 10 Ml Flush Syringe IV 10 ml BID JOHNNA Administration Sodium Chloride 10 ml 03/18/21 22:45 Sodium Chloride 0.9% 10 Ml Flush Syringe IV PRN PRN LINE FLUSH Nutrition/Malnutrition Assess - Dietary Evaluation Nutrition/Malnutrition Findings: Nutrition Notes Start: 03/19/21 10:10 Freq: Status: Active Protocol: Document 03/19/21 10:10 DWAYNE (Rec: 03/19/21 10:21 DWAYNE [id number]) Nutrition Notes Need for Assessment generated from: physical therapist,MST Initial or Follow up Assessment Current Diagnosis Sepsis Other Pertinent Diagnosis pyelonephritis Current Diet Cardiac Labs/Tests Reviewed Pertinent Medications D5NS at 100 ml/hr Height 5 ft 8 in Weight 90.718 kg D[place]inda Body Weight (kg) 70.00 BMI 30.4 Intake Prior to Admission Poor Weight Status Obese Subjective/Other Information RN screen for MST. 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 He was only drinking water and orange juice. Pt reports no recent wt loss. He did not eat breakfast this AM. He is open to ONS TID. Burn Absent Trauma Absent GI Symptoms None Current % PO Negligible Minimum of two criteria No #1 Nutrition Diagnosis Inadequate oral intake Etiology pyelonephritis As Evidenced by Signs and Symptoms pt eating 0% of meals Is patient on ventilator? No Is Patient Ambulatory and/or Out of Bed Yes REE-([place]-ambulatory/OOB) [ 2303.184 [id number]] Kcal/Kg value to use for calculation 21 Approximate Energy Requirements Using 1905 kcal/Kg Calculation Used for Recommendations Kcal/kg Additional Notes Protein: (0.8-1g/kg AdjBW: 80kg) 64-80g Fluid: 1 ml/kcal or per MD Nutrition Intervention Change Diet Order: Continue Add Supplement/Snack (indicate name/kcal Ensure Enlive TID /protein ) Provides kCal: 1,050 Provides Protein (gm) 60 Goal #1 Meet at least 75% of protein and kcal needs via PO and ONS intakes Anticipated Discharge Needs: Cardiac Follow-Up By: 03/21/21 Additional Comments F/u: intakes and ONS tolerance
[2021-03-20] MEDS: ACETAMINOPHEN 325 MG TAB PO PRN (21:17)
[2021-03-21 04:43] VITALS: BP 146/90
[2021-03-21] MEDS: D5W/0.9% NACL 1,000 ML IV SCH (05:11)
[2021-03-21 08:48] LABS: BUN/Creatinine Ratio 7; Blood Urea Nitrogen 8 mg/dL (9-20); Calcium 8.2 mg/dL (8.4-10.2); Hemolysis Index 2; Uric Acid 5.1 mg/dL (3.5-7.6)
[2021-03-21] MEDS: cefTRIAXone/NS 2 GM/100 ML 2 GM/100 ML BAG IV SCH (09:45)
[2021-03-21] MEDS: FAMOTIDINE 20 MG TAB PO SCH (09:45)
[2021-03-21] MEDS: NICOTINE 14 MG/24 HR PATCH TD SCH (09:52)
[2021-03-21] MEDS: HEPARIN 5,000 UNIT/1 ML VIAL SUB-Q SCH (09:52)
--- NOTE | 2021-03-21 10:24 | Discharge Summary ---
Providers - Providers Date of Admission: 03/18/21 22:45 Attending physician: JOSETTE GOMEZ MD Primary care physician: REGISTERED VASCULAR TECHNOLOGIST (RVT) Hospitalization Reason for admission: sepsis Condition: Good Hospital course: 45-year-old male with no significant past medical history comes in for left flank pain and dysuria. Hurting severely. Pain is about 8 on a scale of 1-10. Patient has a history of kidney stones 10 years ago. Also fever off-and-on. No exposure to Covid. Patient is Covid vaccinated. Patient reports improvement dysuria and hematuria. states that his urine stream is good. He also reports some pain in left lower quadrant. He has history of kidney stones but the last attack was about 20 years ago. He reports history of gout in left ankle. Is afebrile with stable vital signs. 03/21: Patient seen and examined today, he has not other complaints and no new fever today. He is tolerating diet and will proceed for discharge today. Urine culture did not return. He is to follow with his primary care doctor for further evaluation (1) Sepsis Current Visit: Yes Status: Acute Qualifiers: Sepsis type: sepsis due to unspecified organism Plan to address problem: Sepsis protocol: IV antibiotic therapy, IV fluid resuscitation therapy, monitor urine output every shift, maintain mean arterial pressure greater than or equal to 65, monitor fluid balance, (2) acute left pyelonephritis with fever 102.4. History of kidney stones and gout Current Visit: Yes Status: Acute Plan to address problem: Fever and leukocytosis resolving. Blood cultures negative but urine cultures were ordered but not sent to lab. Patient does have left upper quadrant mild to moderate tenderness better clinically improving overall. No hydronephrosis on CT. Patient admits to improving her dysuria and hematuria with a good urine stream. Renal function remains normal. No history of kidney stones for the last normal attack was about 20 years ago. He might have an obstructed ureter stone which passed causing hematuria and UTI. Patient denies STD. Plan is to continue IV antibiotic therapy until fever and left upper quadrant abdominal pain resolves. (3) extreme obesity (BMI 30.0-34.9) Current Visit: Yes Status: Acute Plan to address problem: Balanced diet, increase physical activity discharge (4) Nicotine dependence Current Visit: Yes Status: Chronic Qualifiers: Nicotine product type: cigarettes Plan to address problem: Smoking cessation counseling, supportive care, behavior change counseling, +15 minutes. Disposition: 01 HOME / SELF CARE / HOMELESS Final Discharge Diagnosis (Prints w/discharge instructions): Sepsis with acute pylenonphritis Time spent for discharge: 35 MINS Core Measure Documentation - Palliative Care Palliative Care/ Comfort Measures: Not Applicable - Core Measures Any of the following diagnoses?: none Exam - Physical Exam Narrative exam: General appearance: Present: no acute distress, well-nourished, other (Extremely obese) - EENT Eyes: Present: PERRL ENT: hearing intact - Neck Neck: Present: supple - Respiratory Respiratory effort: normal - Cardiovascular Rhythm: regular - Extremities Extremities: No edema - Abdominal General gastrointestinal: soft, normal bowel sounds, None tender - Integumentary Integumentary: Absent: rash - Psychiatric Psychiatric: appropriate mood/affect - Neurologic Neurologic: no focal deficits - Constitutional Vitals: Temp Pulse Resp BP Pulse Ox 98.9 F 60 18 146/90 96 03/21/21 04:24 03/21/21 04:24 03/21/21 04:24 03/21/21 04:24 03/21/21 04:24 Plan Activity: advance as tolerated, fall precautions Diet: low fat Special Instructions: record daily weights, record daily BP diary Follow up with: PRIMARY CARE, [Primary Care Provider] - 7 Days Prescriptions: Nicotine [Habitrol] 14 mg TD QDAY #30 patch levoFLOXacin [Levaquin] 750 mg PO QDAY #7 tablet
--- NOTE | 2021-03-21 14:15 | Vascular Lab Report ---
DUPLEX DOPPLER UPPER EXTREMITY VENOUS, LEFT INDICATION / CLINICAL INFORMATION: SWELLING. Left upper extremity swelling TECHNIQUE: Duplex doppler imaging was performed through the veins of the left upper extremity using v enous compression and other maneuvers. COMPARISON: None available. FINDINGS: LEFT INTERNAL JUGULAR VEIN: Negative. LEFT SUBCLAVIAN VEIN: Negative. LEFT AXILLARY VEIN: Negative. LEFT BRACHIAL VEIN: Negative. LEFT FOREARM VEINS: Negative. LEFT BASILIC VEIN (SUPERFICIAL): Negative. ADDITIONAL FINDINGS: None. IMPRESSION: 1. No sonographic evidence for DVT. Signer Name: Khari King Jr, MD Signed: 03/21/2021 2:10 PM Workstation Name: [id number]
== END 2021-03-21 13:01 | disposition home or self-care (01) | DRG 872 ==
LOC: ED 13:23 → 4A 17:14 → OBSVTOIN 22:45 → 3A 03-19 00:16
PROVIDERS: ADMIT Internal Medicine; ATTEND Internal Medicine
DX: A41.9 Sepsis, unspecified organism (principal); N12 Tubulo-interstitial nephritis, not specified as acute or chronic; E66.9 Obesity, unspecified; Z68.30 Body mass index [BMI] 30.0-30.9, adult; F17.210 Nicotine dependence, cigarettes, uncomplicated; Z20.822 Contact with and (suspected) exposure to COVID-19; Z87.442 Personal history of urinary calculi
CPT/HCPCS: 36415; 74176; 74177; 80048; 80053; 80076; 81001; 82140; 84550; 85007; 85025; 86140; 87040; G0378; J0696; J1170; J1644; J1885; J2405; J7030; J7042; Q9967